=== PATIENT | female | born 1960 | race Caucasian/White ===

== ENCOUNTER 2023-01-26 13:29 | Outpatient (RCR) | payer OTHER, SELFPAY ==
--- NOTE | 2023-01-26 13:49 | PC.NURSE ---
1330: Pt. to [facility] amb. using cane for assist. 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 Pt. undresses and to supine position on bed. Using sterile technique, pt. straight cath'd with immediate return of clear yellow urine. Pt. tolerated with no c/o discomfort. Amanda area cleaned. Given privacy to dress. Specimen sent to lab. 1353: D/c'd amb. to home.
[2023-01-26 14:00] LABS: Bilirubin Urine NEGATIVE (NEGATIVE); Blood Urine NEGATIVE (NEGATIVE); Clarity Urine CLEAR (CLEAR); Color Urine YELLOW (YELLOW); Glucose Urine UA NEGATIVE (NEGATIVE); Ketones Urine NEGATIVE (NEGATIVE); Leukocyte Esterase Urine NEGATIVE (NEGATIVE); Nitrite Urine NEGATIVE (NEGATIVE); Protein Urine NEGATIVE (NEG/TRACE); Specific Gravity Urine 1.025 (1.005-1.025); Urobilinogen Urine 0.2 EU/dL (0.2-1.0); pH Urine 5.5 (5.0-9.0)
[2023-01-26 14:01] LABS: Urine Microscopic Indicated NO
== END 2023-01-29 23:59 | disposition home or self-care (01) ==
LOC: INF 13:29
PROVIDERS: Visit Provider Personal Emergency Response Attendant
DX: N30.00 Acute cystitis without hematuria (principal)
CPT/HCPCS: 51701; 81003